=== PATIENT | male | born 1990 | race Caucasian/White ===

== ENCOUNTER 2016-08-27 08:35 | Observation (INO) | payer SELFPAY ==
[~2016-08-27] VITALS: Ht 190.5 cm; Wt 140.8 kg
[2016-08-27] MEDS ORDERED: IV NORMAL SALINE 1000ML BAG 1,000 ML IV ONE (08:45)
[2016-08-27 08:55] LABS: BASO % 0 % (0-3); EOS % 1 % (0-3); HEMATOCRIT 47.3 % (39.0-53.0); LYMPH # 2.6 x10^3/uL (1.0-4.8); LYMPH % 42 % (24-48); MEAN CORPUSCULAR HEMOGLOBIN 31 pg (25-35); MEAN CORPUSCULAR HGB CONC 34 g/dL (31-37); MEAN CORPUSCULAR VOLUME 92 fL (79-100); MONO % 5 % (0-9); NEUT % 52 % (31-73); PLATELET COUNT 180 x10^3/uL (140-400); RED BLOOD COUNT 5.16 x10^6/uL (4.30-5.70); RED CELL DISTRIBUTION WIDTH 13.7 % (11.5-14.5); WHITE BLOOD COUNT 6.3 x10^3/uL (4.0-11.0)
[2016-08-27 09:02] LABS: CALCIUM 9.3 mg/dL (8.5-10.1); CREATININE 1.3 mg/dL (0.7-1.3); GFR 67.3; POTASSIUM 3.7 mmol/L (3.5-5.1)
[2016-08-27 09:08] LABS: ALBUMIN 3.8 g/dL (3.4-5.0); TOTAL BILIRUBIN 0.2 mg/dL (0.2-1.0); TOTAL PROTEIN 7.7 g/dL (6.4-8.2)
--- NOTE | 2016-08-27 09:31 | RAD ---
Portable chest, 08/27/2016: History: Seizure. The heart size and pulmonary vascularity are normal. No pulmonary infiltrates are seen. There is no evidence of pleural fluid. IMPRESSION: No acute cardiopulmonary abnormality is detected.
--- NOTE | 2016-08-27 10:02 | RAD ---
Indication seizure. Noncontrast images of the head were obtained. No prior imaging of the head is available. The calvarium appears unremarkable. There are some polyps or retention cysts in the right maxillary sinus. There is no subdural or epidural hematoma. The ventricles and sulci are normal. There is no mass or midline shift. Acute finding is not apparent. IMPRESSION: No acute or significant finding seen on noncontrast CT images of the head. PQRS Compliance Statement: One or more of the following individualized dose reduction techniques were utilized for this examination: 1. Automated exposure control 2. Adjustment of the mA and/or kV according to patient size 3. Use of iterative reconstruction technique
[2016-08-27 10:09] LABS: BARBITURATES NEG (NEG); BENZODIAZEPINES POS (NEG); CANNABINOIDS NEG (NEG); COCAINE NEG (NEG); METHADONE NEG (NEG); OPIATES NEG (NEG); PHENCYCLIDINE NEG (NEG)
[2016-08-27 10:36] LABS: BILIRUBIN,URINE NEGATIVE (NEG); GLUCOSE,URINE NEGATIVE (NEG); NITRITE,URINE NEGATIVE (NEG); PROTEIN,URINE 30 mg/dL (NEG-TRACE); UROBILINOGEN,URINE 0.2 mg/dL (0.2 mg/dL)
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
[2016-08-27 11:00] LABS: BACTERIA,URINE FEW /HPF (0-FEW); RBC,URINE OCC /HPF (0-2); SQUAMOUS EPITHELIAL CELL,UR OCC /LPF; WBC,URINE OCC /HPF (0-4)
--- NOTE | 2016-08-27 11:05 | EKG ---
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
--- NOTE | 2016-08-27 11:45 | ACF ---
Admission Forms Criteria SEIZURE Clinical Indications for Admission to Inpatient Care (Place 'X' for any and all applicable criteria): Admission is indicated for seizure and ANY ONE of the following(1)(2)(3)(4)(5): [ ]I. Inpatient admission required rather than observation care (Also use Seizure: Observation Care Criteria as appropriate) because of ANY ONE of the following: [ ]a) Altered mental status that is severe or persistent [ ]b) New focal neurologic deficit that is severe or persistent [ ]c) Metabolic disorder (eg, hypoglycemia, hyponatremia) that is severe or persistent [ ]d) Recurrent seizure [ ]e) Outpatient antiseizure regimen cannot be established (eg , patient cannot tolerate medication, initiation requires inpatient care) [ ]f) Need for ongoing intravenous infusion of antiseizure medication [ ]g) Cardiac arrhythmias of immediate concern [ ]h) Cerebral bleeding, hydrocephalus, or vasospasm monitoring (14) [ ]i) Increased intracranial pressure or cerebral edema monitoring (15) [ ]j) Other treatment or monitoring requiring inpatient admission [ ]II. Status epilepticus [A] or repetitive seizures not controlled with emergent treatment (6)(8) [ ]III. Brain disorder (eg, tumor, edema, and hydrocephalus) that requiring monitoring or intervention available only at inpatient level of care. [ ]IV. Brain insult (eg, severe trauma, stroke, drug toxicity, or withdrawal) that requires monitoring or intervention available only at inpatient level of care (10)(11) Extended stay beyond goal length of stay may be needed for (22) [ ]a) Complications of status epilepticus [ ]b) Refractory status epilepticus [ ]c) Etiology-specific therapy for conditions such as CHEMICAL PLANT OPERATOR SUPERVISOR infection, head injury,eclampsia, severe metabolic abnormalities, and brain tumor [ ]d) Residual neurologic damage, [ ]e) Initiation of significant change to anticonvulsant treatment [ ]f) Older patients (65 years or older) [ ]g) Patient requiring intubation (eg, to protect airway) The original [employer] content created by [employer] has been revised. The portions of the content which have been revised are identified through the use of italic text or in bold, and [facility] [employer] has neither reviewed nor approved the modified material. All other unmodified content is copyright [facility] [employer]. Please see references footnoted in the original [facility] edition 2016 OMID KANG August 27, 2016 11:45
[2016-08-27] MEDS ORDERED: levETIRAcetam 500 MG TABLET PO ONE (12:15)
[2016-08-27] MEDS: IV NORMAL SALINE 1000ML BAG 1,000 ML IV SCH ×2 (14:35→22:35)
[2016-08-27] MEDS ORDERED: ONDANSETRON PF 4 MG/2 ML VIAL. IV PRN ×2 (14:45→14:55)
[2016-08-27] MEDS ORDERED: ACETAMINOPHEN 325 MG TABLET. PO PRN (14:45)
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
[2016-08-27 15:15] VITALS: BP 105/51
[2016-08-27 15:28] VITALS: BP 105/51
[2016-08-27] MEDS ORDERED: LAMO200T PO (17:03)
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
[2016-08-27 19:35] VITALS: BP 113/62
[2016-08-27] MEDS: levETIRAcetam 500 MG TABLET PO SCH (20:03)
[2016-08-27] MEDS: DIVALPROEX DELAYED RELEASE 500 MG TABLET.DR. PO SCH (20:04)
[2016-08-28 03:35] VITALS: BP 111/45
[2016-08-28] MEDS: IV NORMAL SALINE 1000ML BAG 1,000 ML IV SCH (06:35)
[2016-08-28 06:46] LABS: BASO % 0 % (0-3); EOS % 0 % (0-3); HEMOGLOBIN 14.2 g/dL (13.0-17.5); LYMPH # 2.5 x10^3/uL (1.0-4.8); LYMPH % 34 % (24-48); MEAN CORPUSCULAR HEMOGLOBIN 31 pg (25-35); MEAN CORPUSCULAR HGB CONC 34 g/dL (31-37); MEAN CORPUSCULAR VOLUME 92 fL (79-100); MONO % 10 % (0-9); NEUT % 56 % (31-73); PLATELET COUNT 141 x10^3/uL (140-400); RED BLOOD COUNT 4.59 x10^6/uL (4.30-5.70); RED CELL DISTRIBUTION WIDTH 14.1 % (11.5-14.5); WHITE BLOOD COUNT 7.2 x10^3/uL (4.0-11.0)
[2016-08-28 06:52] LABS: CALCIUM 8.7 mg/dL (8.5-10.1); CREATININE 0.9 mg/dL (0.7-1.3); GFR 102.8; POTASSIUM 4.3 mmol/L (3.5-5.1)
[2016-08-28 07:08] VITALS: BP 115/45
[2016-08-28] MEDS: DIVALPROEX DELAYED RELEASE 500 MG TABLET.DR. PO SCH (08:36)
[2016-08-28] MEDS: levETIRAcetam 500 MG TABLET PO SCH (08:36)
[2016-08-28 11:11] VITALS: BP 109/41
[2016-08-28] MEDS ORDERED: LEVE500T56 PO (11:17)
[2016-08-28] MEDS ORDERED: DIVA500T9 PO (11:17)
--- NOTE | 2016-08-28 12:33 | PDOC3 ---
Discharge Summary [facility] Date of Admission: August 27, 2016 Discharge Date: August 28, 2016 Admitting Diagnosis 1. siezure with h/o of Epilepsy 2.morbid obesity 3. Elevated lactate post SZ Problems: Final Diagnosis CONSULTS neuro Brief Hospital Course Mr. Vazquez is a 26 old M, h/o epilepsy on Depakote, lamitril, comes for seizure. Head CT neg. high LA could 2/2 seizure. neurologist consulted, EEG pending, will do MRI brain wo and w contrast. pt feels ok today, mild unsteady gait. will dc pt if no further intervention. Depakote 1500mg bid, lamitril dced by neuro, add keppra 500mg bid. dc time 40min General: Alert, Oriented X3, Cooperative, No acute distress HEENT: Atraumatic, PERRLA, EOMI Lungs: Clear to auscultation, Normal air movement Heart: S1S2, RRR, no thrills, no rubs, no gallops Cardiovascular: S1, S2 Breasts: Normal Abdomen: Normal bowel sounds Male Genitals Exam: normal genitalia Rectal Exam: not examined PELVIC: Nml ext genitalia Extremities: No clubbing, No cyanosis, No edema, Normal pulses, No tenderness/ swelling Skin: No rashes, No breakdown, No significant lesion Neuro: Normal gait, Normal speech, Strength at 5/5 X4 ext, Normal tone, Sensation intact, Cranial nerves 3-12 NL, Reflexes 2+ Problems: Disposition home CONDITION AT DISCHARGE: Improved Diet regular Scheduled Divalproex Sodium (Divalproex Sodium), 1,500 MG PO BID Levetiracetam (Keppra), 500 MG PO BID Discontinued Medications Lamotrigine (Lamotrigine), 1 TAB PO BID, (Reported) Follow Up neuro in 2 weeks LORENE JOHNSTON MD August 28, 2016 12:33
--- NOTE | 2016-08-28 15:18 | PDOC ---
PROGRESS NOTES Assessment Assessment Seizure x 1 on 08/27/16, last seizure was about 3 to 5 years ago. Questionable seizure or behavior disorder. Frontal lobe seizure evaluation. Concussion, 10 minutes at age 16, per history for his sister. Obesity. RECOMMENDATIONS/PLAN: Continue Depakote, decrease to 1500 mg bid. Keppra 500 mg bid. Discontinued Lamotrigine since patient already discontinued it before admission. His sister requested a brain MRI, it can be performed on outpatient basis. Patient education for seizure precautions. No driving x 6 months anytime after a seizure. EEG on 08/28/16: Normal. No epileptiform discharges. HISTORY OF THE PRESENT ILLNESS: 26-y-old male patient was was a recently immigrant from [place]. He does not speak much [place] so his sister provided information. She said he had a head injury during sport at age 16 and he last consciousness for about 10 minutes at that time. He then had seizures described as large flapping movements in his UE or as throwing balls and movements in his legs but not typical like bicycling movements. He had evaluation in [place] but the diagnosis of seizure was not determined. Anyway, he has been taken Depakote 200omg bid and Lamotrigine (?) 200 mg am and 300 mg pm, but he has not taken lamotrigine for a day or 2. His last seizure was about 5myears ago per his sister, but the time was changed to about 3 years ago when patient was on the floor. His sister said he had a seizure for about 40 minutes on 08/27 with similar description as above and his seizures always occurred during sleeping. His brother said his eye were moving around looking to different directions during seizure and he was able to say a few words during seizure. No focalized sensory or motor deficits after seizure. He had brain MRI about 7 to 8 years ago in [place] which was unremarkable. Further questioning on 08/28 found that the patient speaks and understands [place] well and he has been in the [place] for 7 years. No seizure since in the hospital. PAST MEDICAL HISTORY: Please see above. PAST SURGERY HISTORY: Appendectomy ALLERGY: Unknown MEDICATIONS: Refer to [facility] FAMILY HISTORY: Non contributory. SOCIAL HISTORY: Not speak nor understand [place] as said on 08/27, but found that he has been in the [place] since 2008 or 2009 and speaks and understands [place] well.. Denies illicit drug use. REVIEW OF SYSTEMS: Constitutional: No malnutrition, weight loss, cachexia. Head: likely concussion at age 16. Skin: No edema, or rash. Ear: No infection. Eyes: No vision loss or color blindness. Nose: No bleeding or purulent discharges. Hearing: No hearing decrease. Neck: No injury. Cardiac: No CO, arrhythmia,claudication. Pulmonary: No pneumonia, COPD. GI: No GI ulcer, GI bleeding. Urinary/genital: No dysuria, incontinence, urinary retention. Endocrinologic: No cousin face, craniofacial dysmorphism, polydactyly, goiter. Skeletomuscular: No muscular atrophy, deformity. Neurological: see HP. Psychiatric: Denies drug use/abuse. Otherwise, not [id number] review of systems. PHYSICAL EXAMINATION: General appearance is in no acute distress. HEENT: Normocephalic and nontraumatic. Eyes, nose, ears, and throat are unremarkable. Neck is supple. No lymphadenopathy. No bruits are heard over the carotid artery. No crepitus. Cardiovascular: S1, S2, regular rate and rhythm. Pulmonary: Clear to auscultation bilaterally. Abdomen: Bowel sounds are positive. Abdomen is soft, nontender, and nondistended. Extremities: No rash, lesions, or edema. No restriction of range of motion NEUROLOGICAL EXAMINATION: Alert Oriented to time, place and person. PERRL. EOMI. CN: no focal findings. Muscle tone: within normal. Muscle strength: 5 DTR: 2 Plantar reflex: Flexor response bilaterally Gait: not examined in bed. Sensory exam: no abnormal findings. No cerebellar signs elicited. F-T-N test accurate. Objective Objective Vital Signs Date Time Temp Pulse Resp B/P (MAP) Pulse Ox O2 Delivery O2 Flow Rate FiO2 08/28/16 11:11 97.7 63 18 109/41 (63) 98 Room Air 97.7 08/27/16 08:45 4.0 Intake and Output 08/28/16 07:00 Intake Total 1600 ml Balance 1600 ml Intake Oral 600 ml IV Total 1000 ml # Voids 1 Vitals Signs Vitals VS - Last 72 Hours, by Label Date Time Temp Pulse Resp B/P (MAP) Pulse Ox O2 Delivery O2 Flow Rate FiO2 08/28/16 11:11 97.7 63 18 109/41 (63) 98 Room Air 97.7 08/28/16 08:00 Room Air 08/28/16 07:08 97.5 55 17 115/45 (68) 100 Room Air 97.5 08/28/16 03:35 97.5 56 16 111/45 (67) 95 Room Air 97.5 08/27/16 23:36 Room Air 08/27/16 20:00 Room Air 08/27/16 19:35 98.9 81 16 113/62 (79) 92 Room Air 98.9 08/27/16 15:28 98.2 81 20 105/51 (69) 96 Room Air 98.2 08/27/16 15:15 98.2 81 22 105/51 (69) 96 Room Air 98.2 08/27/16 15:13 Room Air 08/27/16 14:00 82 13 145/62 (89) 96 08/27/16 13:00 86 13 124/73 (90) 98 08/27/16 12:00 86 12 134/63 (86) 99 08/27/16 11:00 84 20 123/63 (83) 99 08/27/16 10:00 102 13 136/65 (88) 98 08/27/16 09:00 104 14 140/75 (96) 93 08/27/16 08:45 99.0 128 14 133/76 (95) 93 Nasal Cannula 4.0 99.0 Laboratory Laboratory Laboratory Tests Test 08/28/16 06:10 White Blood Count 7.2 x10^3/uL (4.0-11.0) Red Blood Count 4.59 x10^6/uL (4.30-5.70) Hemoglobin 14.2 g/dL (13.0-17.5) Hematocrit 42.0 % (39.0-53.0) Mean Corpuscular Volume 92 fL (79-100) Mean Corpuscular Hemoglobin 31 pg (25-35) Mean Corpuscular Hemoglobin Concent 34 g/dL (31-37) Red Cell Distribution Width 14.1 % (11.5-14.5) Platelet Count 141 x10^3/uL (140-400) Neutrophils (%) (Auto) 56 % (31-73) Lymphocytes (%) (Auto) 34 % (24-48) Monocytes (%) (Auto) 10 % (0-9) Eosinophils (%) (Auto) 0 % (0-3) Basophils (%) (Auto) 0 % (0-3) Neutrophils # (Auto) 4.0 x10^3uL (1.8-7.7) Lymphocytes # (Auto) 2.5 x10^3/uL (1.0-4.8) Monocytes # (Auto) 0.7 x10^3/uL (0.0-1.1) Eosinophils # (Auto) 0.0 x10^3/uL (0.0-0.7) Basophils # (Auto) 0.0 x10^3/uL (0.0-0.2) Sodium Level 145 mmol/L (136-145) Potassium Level 4.3 mmol/L (3.5-5.1) Chloride Level 108 mmol/L (98-107) Carbon Dioxide Level 29 mmol/L (21-32) Anion Gap 8 (6-14) Blood Urea Nitrogen 15 mg/dL (8-26) Creatinine 0.9 mg/dL (0.7-1.3) Estimated GFR (Cockcroft-Gault) 102.8 Glucose Level 86 mg/dL (70-99) Calcium Level 8.7 mg/dL (8.5-10.1) Valproic Acid (Depakene) Level 103 mcg/mL (50-100) Valproic Acid Last Dose Date 08/27/16 Valproic Acid Last Dose Time 0900 Medication Medications Current Medications Divalproex Sodium (Depakote) 1,500 mg BID PO ; Start 08/28/16 at 21:00 Divalproex Sodium (Depakote) 2,000 mg BID PO Last administered on 08/28/16 08: 36; Start 08/27/16 at 21:00; Stop 08/28/16 at 11:05; Status DC Levetiracetam (Keppra) 500 mg BID PO Last administered on 08/28/16 08:36; Start 08/27/16 at 21:00 Comment Review of Relevant I have reviewed the following items chiara (where applicable) has been applied. LADAN ALMAGUER MD August 28, 2016 15:18
--- NOTE | 2016-08-28 15:53 | EEG ---
DATE OF SERVICE: EEG DATE: 08/31/2016 EEG NUMBER: [id number] OBJECTIVE: This is a 26-year-old male patient with history of seizure on 08/27/2016. EEG was requested to evaluate the seizure activity. METHODS: Twenty electrodes were applied according to the international 10-20 electrode placement system. EKG monitoring, hyperventilation, intermittent photic stimulation, monopolar and bipolar montages are routinely utilized. The record was obtained on a digital system with video monitoring. MEDICATIONS: Depakote and Keppra. FINDINGS: 1. Background: The patient was recorded in the awake and drowsy states. No sleep state was recorded. The overall background amplitude is 10-30 microvolts. A posterior dominant rhythm of 8-9 Hz is observed. 2. Abnormalities: No specific epileptiform discharge or electrographic seizure is seen. No focal or diffuse slowing. 3. Activation: Hypoventilation was performed with good efforts and normal response. Intermittent photic stimulation was performed with photic driving. No specific epileptiform discharge or electrographic seizure induced by hyperventilation or intermittent photic stimulation. IMPRESSION: This EEG is a normal study for the awake and drowsy states. No sleep state was recorded. No focal, lateralizing, specific epileptiform discharge or electrographic seizure is seen. LADAN ALMAGUER MD DR: [email or web address] JOB#: [id number] / [id number]
[2016-08-28] MEDS ORDERED: DIVALPROEX DELAYED RELEASE 500 MG TABLET.DR. PO SCH (21:00)
== END 2016-08-28 14:55 | disposition home or self-care (01) ==
LOC: ER 08:35 → 6 SOUTH 13:20
PROVIDERS: ADMIT Internal Medicine; ATTEND Internal Medicine
DX: G40.909 Epilepsy, unspecified, not intractable, without status epilepticus (principal); R74.0 Nonspecific elevation of levels of transaminase and lactic acid dehydrogenase [LDH]; E66.01 Morbid (severe) obesity due to excess calories; J44.9 Chronic obstructive pulmonary disease, unspecified; Z87.820 Personal history of traumatic brain injury; Z79.899 Other long term (current) drug therapy
CPT/HCPCS: 36415; 70450; 71010; 80048; 80053; 80164; 81001; 83605; 85027; 93005; 95816; 96360; 99285; G0378; G0481; J7030; G0379

== ENCOUNTER → 2016-08-28 | Outpatient (CLI) | payer SELFPAY ==
[~2016-08-28] MED LIST: DIVA500T9 PO; GADOBUTROL 10 MMOL/10 ML VIAL IV ONE; LAMO200T PO; LEVE500T56 PO
[2016-08-28 11:11] VITALS: BP 109/41
--- NOTE | 2016-08-28 17:08 | RAD ---
MR BRAIN WITH CONTRAST HISTORY: Seizures Technique: Axial diffusion weighted imaging was obtained. Additional sagittal T1, axial T1, axial FLAIR, coronal gradient echo, and axial T2 weighted imaging of the brain was also performed. Further 3 mm coronal T2 weighted images were also obtained axial, sagittal, and coronal T1-weighted images were then obtained after the administration of gadolinium based intravenous contrast material. FINDINGS: There is a partially cystic nonenhancing intra-axial mass in the left temporal pole measures 2.2 x 1.8 x 1.4 cm. No other lesions are identified. No regions of abnormal enhancement are identified. The hippocampal formations are symmetric in morphology, size, and signal. No evidence of cortical dysplasia is seen. No regions of restricted diffusion are seen to indicate an acute infarct. There is no evidence of intracranial hemorrhage. Specifically, no abnormal susceptibility is identified on the gradient echo images to indicate a microhemorrhage. No extra-axial fluid collections are identified. No midline shift or mass effect is seen. Ventricular size is within normal limits. Midline structures have a normal anatomic configuration. Pituitary gland and infundibulum are unremarkable. Basal cisterns are patent. Flow voids are preserved at the skull base. Cerebellum and posterior fossa structures are unremarkable. Globes and orbits are within normal limits. Paranasal sinuses and mastoid air cells are clear. IMPRESSION: There is a 1-2 subcentimeter nonenhancing intra-axial partially cystic mass in the left temporal pole which is the leading suspicion for an epileptogenic focus. Differential considerations include ganglioglioma and dysembryoplastic neuroepithelial tumor. Electronically signed by: Chencho Tomas MD (08/28/2016 5:04 PM)
== END | disposition home or self-care (01) ==
LOC: MRI 15:14
PROVIDERS: ATTEND Internal Medicine
DX: R56.9 Unspecified convulsions (principal); G93.0 Cerebral cysts
CPT/HCPCS: 70553; A9585